=== PATIENT | male | born 1995 | race Caucasian/White ===

== ENCOUNTER 2017-01-18 12:50 | Emergency (ER) | payer MEDICAID | END 2017-01-18 17:02 | disposition home or self-care (01) | LOC: D.ER 12:50 | DX: S91.331A Puncture wound without foreign body, right foot, initial encounter (principal); W45.0XXA Nail entering through skin, initial encounter; Y93.89 Activity, other specified; Y92.019 Unspecified place in single-family (private) house as the place of occurrence of the external cause ==

== ENCOUNTER 2017-10-11 19:28 | Emergency (ER) | payer MEDICAID | END 2017-10-11 21:32 | disposition home or self-care (01) | LOC: D.ER 19:28 | DX: J11.1 Influenza due to unidentified influenza virus with other respiratory manifestations (principal); R11.2 Nausea with vomiting, unspecified ==

== ENCOUNTER 2017-11-24 07:04 | Emergency (ER) | payer MEDICAID ==
[2017-11-24 07:56] LABS: HEMATOCRIT 42.3 % (42.0-54.0); HEMOGLOBIN 14.9 g/dL (13.5-17.5); MCH 30.7 pg (26.0-34.0); MCHC 35.2 g/dL (31.0-37.0); MEAN PLATELET VOLUME 10.2 fL (7.4-10.4); PLATELET COUNT 207 10x3/uL (130-400); RBC 4.86 10x6/uL (4.20-6.10); RDW 12.2 % (11.5-14.5); WBC 21.6 10x3/uL (4.8-10.8)
[2017-11-24 08:08] LABS: ALBUMIN 4.3 g/dL (3.4-5.0); ALKALINE PHOSPHATASE 83 U/L (46-116); ALT (SGPT) 20 U/L (10-68); BILIRUBIN - TOTAL 1.06 mg/dL (0.2-1.3); CALC OSMOLALITY 273 mosm/kg (275-300); CARBON DIOXIDE 27.2 mmol/L (21.0-32.0); CHLORIDE - SERUM 98 mmol/L (98-107); CREATININE - SERUM 1.1 mg/dL (0.6-1.3); GLUCOSE 99 mg/dL (74-106); LIPASE 69 U/L (73-393); POTASSIUM - SERUM 3.5 mmol/L (3.5-5.1); PROTEIN - SERUM 7.7 g/dL (6.4-8.2); SODIUM 136 mmol/L (136-145); UREA NITROGEN 17 mg/dL (7-18); eGFR NON AFRICAN AMERICAN 90 mL/min (90-120)
[2017-11-24 08:16] LABS: APPEARANCE HAZY (CLEAR); BILIRUBIN NEGATIVE (NEGATIVE); COLOR DK YELLOW (YELLOW); GLUCOSE NEGATIVE (NEGATIVE); KETONE NEGATIVE (NEGATIVE); NITRITE NEGATIVE (NEGATIVE); PROTEIN TRACE mg/dL (NEGATIVE); UROBILINOGEN NORMAL (NORMAL)
[2017-11-24 08:19] LABS: EPITHELIAL CELLS 0-5 /hpf (0-5); RED CELLS - URINE 0-5 /hpf (0-5); WHITE CELLS - URINE 0-5 /hpf (0-5)
[2017-11-24 08:20] LABS: AMORPHOUS SEDIMENT <1+ /lpf (NONE SEEN); BACTERIA FEW /hpf (NONE SEEN); GRANULAR CAST OCC /lpf (NONE SEEN); HYALINE CAST 0-5 /lpf (NONE SEEN); MUCUS >1+ /lpf (NONE SEEN); WAXY CAST RARE /lpf (NONE SEEN)
[2017-11-24 08:24] LABS: LYMPHOCYTES 4 % (15-50); MONOCYTES 4 % (2-11); NEUTROPHILS 81 % (40-80)
[2017-11-24 08:25] LABS: PLATELET ESTIMATE NORMAL; VACUOLES OCC
[2017-11-24 08:26] LABS: PLATELET MORPHOLOGY GIANT PLTS PRESENT
== END 2017-11-24 09:51 | disposition home or self-care (01) ==
LOC: D.ER 07:04
PROVIDERS: Family Medicine
DX: M54.5 Low back pain (principal); R10.9 Unspecified abdominal pain; D72.829 Elevated white blood cell count, unspecified

== ENCOUNTER 2017-11-25 19:13 | Emergency (ER) | payer MEDICAID ==
[2017-11-25 19:55] LABS: BASOPHILS 0.2 % (0-2); EOSINOPHILS 0.1 % (0-7); HEMATOCRIT 43.1 % (42.0-54.0); HEMOGLOBIN 15.4 g/dL (13.5-17.5); IMMATURE GRANULOCYTES 0.3 % (0-5); LYMPHOCYTES 8.9 % (15-50); MCH 30.7 pg (26.0-34.0); MCHC 35.7 g/dL (31.0-37.0); MEAN PLATELET VOLUME 10.3 fL (7.4-10.4); MONOCYTES 9.5 % (2-11); PLATELET COUNT 181 10x3/uL (130-400); RBC 5.01 10x6/uL (4.20-6.10); WBC 19.6 10x3/uL (4.8-10.8)
[2017-11-25 20:22] LABS: C-REACTIVE PROTEIN 17.2 mg/dL (0.0-0.9)
[2017-11-25 21:02] LABS: ERYTHROCYTE SEDIMENTATION RATE 5 mm/hr (0-15)
[2017-11-25 21:02] LABS: APPEARANCE HAZY (CLEAR); BILIRUBIN 2+ (NEGATIVE); COLOR AMBER (YELLOW); GLUCOSE NEGATIVE (NEGATIVE); KETONE MODERATE mg/dL (NEGATIVE); NITRITE NEGATIVE (NEGATIVE); PROTEIN 1+ mg/dL (NEGATIVE); SPECIFIC GRAVITY 1.015 (1.005-1.020)
[2017-11-25 21:03] LABS: UDS - AMPHET NEGATIVE QUAL (NEGATIVE); UDS - BARB NEGATIVE QUAL (NEGATIVE); UDS - BENZO NEGATIVE QUAL (NEGATIVE); UDS - COCAINE NEGATIVE QUAL (NEGATIVE); UDS - OPIATE NEGATIVE QUAL (NEGATIVE); UDS - PCP NEGATIVE QUAL (NEGATIVE); UDS - THC NEGATIVE QUAL (NEGATIVE)
[2017-11-25 21:05] LABS: BACTERIA MODERATE /hpf (NONE SEEN); EPITHELIAL CELLS OCC /hpf (0-5); HYALINE CAST RARE /lpf (NONE SEEN); MUCUS >1+ /lpf (NONE SEEN); RED CELLS - URINE 0-5 /hpf (0-5)
== END 2017-11-25 21:34 | disposition home or self-care (01) ==
LOC: D.ER 19:13
PROVIDERS: Emergency Medicine
DX: R55 Syncope and collapse (principal); R82.71 Bacteriuria; F17.200 Nicotine dependence, unspecified, uncomplicated

== ENCOUNTER 2018-06-18 19:18 | Emergency (ER) | payer SELFPAY ==
[~2018-06-18] VITALS: Ht 378.5 cm; Wt 781.8 kg
[2018-06-18 19:34] VITALS: Ht 378.5 cm; Wt 781.8 kg
[2018-06-18 20:14] LABS: BASOPHILS 0.3 % (0-2); HEMATOCRIT 40.9 % (42.0-54.0); HEMOGLOBIN 14.7 g/dL (13.5-17.5); IMMATURE GRANULOCYTES 0.2 % (0-5); LYMPHOCYTES 28.7 % (15-50); MCH 30.6 pg (26.0-34.0); MCHC 35.9 g/dL (31.0-37.0); MEAN PLATELET VOLUME 10.7 fL (7.4-10.4); MONOCYTES 5.5 % (2-11); NEUTROPHILS 64.3 % (40-80); RBC 4.81 10x6/uL (4.20-6.10); RDW 12.1 % (11.5-14.5); WBC 9.9 10x3/uL (4.8-10.8)
[2018-06-18 20:18] LABS: PLATELET COUNT 248 10x3/uL (130-400)
[2018-06-18 20:27] LABS: ALKALINE PHOSPHATASE 77 U/L (46-116); ALT (SGPT) 26 U/L (10-68); AMYLASE - SERUM 64 U/L (25-115); BILIRUBIN - TOTAL 0.42 mg/dL (0.2-1.3); CALC OSMOLALITY 289 mosm/kg (275-300); CALCIUM 8.9 mg/dL (8.5-10.1); CARBON DIOXIDE 31.7 mmol/L (21.0-32.0); CHLORIDE - SERUM 108 mmol/L (98-107); GLUCOSE 96 mg/dL (74-106); LIPASE 104 U/L (73-393); POTASSIUM - SERUM 3.8 mmol/L (3.5-5.1); PROTEIN - SERUM 7.1 g/dL (6.4-8.2); SODIUM 146 mmol/L (136-145); UREA NITROGEN 11 mg/dL (7-18); eGFR NON AFRICAN AMERICAN > 90 mL/min (90-120)
[2018-06-18 21:43] LABS: APPEARANCE HAZY (CLEAR); COLOR YELLOW (YELLOW)
[2018-06-18 21:44] LABS: BILIRUBIN NEGATIVE (NEGATIVE); GLUCOSE NEGATIVE (NEGATIVE); KETONE NEGATIVE (NEGATIVE); NITRITE NEGATIVE (NEGATIVE); PROTEIN NEGATIVE (NEGATIVE); SPECIFIC GRAVITY 1.015 (1.005-1.020); UROBILINOGEN NORMAL (NORMAL)
[2018-06-18] MEDS ORDERED: ZOFRAN8 MG PO (22:52)
[2018-06-18] MEDS ORDERED: TORADOL10 MG PO (22:52)
[2018-06-18 23:12] VITALS: BP 110/50
== END 2018-06-18 23:14 | disposition home or self-care (01) ==
LOC: D.ER 19:18
PROVIDERS: Family Medicine
DX: R11.2 Nausea with vomiting, unspecified (principal); R10.9 Unspecified abdominal pain

== ENCOUNTER 2018-11-19 19:36 | Emergency (ER) | payer SELFPAY ==
[~2018-11-19] VITALS: Ht 172.7 cm; Wt 80.5 kg
[~2018-11-19 19:36] MED LIST: TORADOL10 MG PO; ZOFRAN8 MG PO
[2018-11-19 20:02] VITALS: Ht 172.7 cm; Wt 80.5 kg
[2018-11-19] MEDS ORDERED: VIBRAMYCIN 100100 MG PO (21:35)
[2018-11-19] MEDS ORDERED: PHENERGAN DM SYR5 ML PO (21:35)
[2018-11-19 22:25] VITALS: BP 119/62
== END 2018-11-19 22:25 | disposition home or self-care (01) ==
LOC: D.ER 19:36
DX: J06.9 Acute upper respiratory infection, unspecified (principal); R05 Cough; R07.9 Chest pain, unspecified

== ENCOUNTER 2019-01-05 23:56 | Emergency (ER) | payer SELFPAY ==
[~2019-01-05] VITALS: Ht 172.7 cm; Wt 77.1 kg
[~2019-01-05 23:56] MED LIST changes: +PHENERGAN DM SYR5 ML PO; +VIBRAMYCIN 100100 MG PO
[2019-01-06 00:01] VITALS: Ht 172.7 cm; Wt 77.1 kg
[2019-01-06] MEDS ORDERED: VOLTAREN75 MG PO (00:27)
[2019-01-06] MEDS ORDERED: PHENERGAN DM SYR5 ML PO (00:27)
[2019-01-06 01:07] VITALS: BP 124/62
== END 2019-01-06 01:05 | disposition home or self-care (01) ==
LOC: D.ER 23:56
DX: J40 Bronchitis, not specified as acute or chronic (principal); M79.18 Myalgia, other site

== ENCOUNTER 2019-01-16 17:09 | Emergency (ER) | payer BC ==
[~2019-01-16] VITALS: Ht 172.7 cm; Wt 70.5 kg
[~2019-01-16 17:09] MED LIST changes: +VOLTAREN75 MG PO
[2019-01-16 18:05] VITALS: Ht 172.7 cm; Wt 70.5 kg
[2019-01-16 18:56] LABS: BASOPHILS 0.5 % (0-2); EOSINOPHILS 1.6 % (0-7); HEMATOCRIT 44.4 % (42.0-54.0); HEMOGLOBIN 15.9 g/dL (13.5-17.5); IMMATURE GRANULOCYTES 0.2 % (0-5); LYMPHOCYTES 28.6 % (15-50); MCH 30.9 pg (26.0-34.0); MCHC 35.8 g/dL (31.0-37.0); MCV 86.2 fL (80.0-100.0); MEAN PLATELET VOLUME 9.9 fL (7.4-10.4); MONOCYTES 8.2 % (2-11); NEUTROPHILS 60.9 % (40-80); PLATELET COUNT 238 10x3/uL (130-400); RBC 5.15 10x6/uL (4.20-6.10); RDW 12.2 % (11.5-14.5); WBC 9.4 10x3/uL (4.8-10.8)
[2019-01-16 19:18] LABS: APPEARANCE CLEAR (CLEAR); BILIRUBIN NEGATIVE (NEGATIVE); COLOR YELLOW (YELLOW); GLUCOSE NEGATIVE (NEGATIVE); KETONE NEGATIVE (NEGATIVE); NITRITE NEGATIVE (NEGATIVE); PROTEIN NEGATIVE (NEGATIVE); UROBILINOGEN NORMAL (NORMAL)
[2019-01-16 19:43] LABS: ALBUMIN 3.9 g/dL (3.4-5.0); ALKALINE PHOSPHATASE 93 U/L (46-116); ALT (SGPT) 23 U/L (10-68); BILIRUBIN - TOTAL 0.34 mg/dL (0.2-1.3); CALC OSMOLALITY 282 mosm/kg (275-300); CARBON DIOXIDE 29.8 mmol/L (21.0-32.0); CHLORIDE - SERUM 105 mmol/L (98-107); CREATININE - SERUM 0.9 mg/dL (0.6-1.3); GLUCOSE 112 mg/dL (74-106); POTASSIUM - SERUM 3.9 mmol/L (3.5-5.1); PROTEIN - SERUM 7.5 g/dL (6.4-8.2); SODIUM 141 mmol/L (136-145); UREA NITROGEN 16 mg/dL (7-18); eGFR NON AFRICAN AMERICAN > 90 mL/min (90-120)
[2019-01-16 22:08] VITALS: BP 118/71
== END 2019-01-16 22:08 | disposition home or self-care (01) ==
LOC: D.ER 17:09
PROVIDERS: Family Medicine
DX: M79.18 Myalgia, other site (principal)

== ENCOUNTER 2019-03-06 16:06 | Emergency (ER) | payer BC ==
[~2019-03-06] VITALS: Ht 172.7 cm; Wt 78.6 kg
[2019-03-06 16:09] VITALS: Ht 172.7 cm; Wt 78.6 kg
[2019-03-06] MEDS ORDERED: PAXIL20 MG PO (16:11)
[2019-03-06] MEDS ORDERED: PREDNISONE20 MG PO (16:41)
[2019-03-06] MEDS ORDERED: BACTRIM 400-801 TAB PO (16:41)
[2019-03-06 17:39] VITALS: BP 138/76
== END 2019-03-06 17:39 | disposition home or self-care (01) ==
LOC: D.ER 16:06
DX: S00.86XA Insect bite (nonvenomous) of other part of head, initial encounter (principal); S40.862A Insect bite (nonvenomous) of left upper arm, initial encounter; W57.XXXA Bitten or stung by nonvenomous insect and other nonvenomous arthropods, initial encounter; Y93.89 Activity, other specified; Y92.89 Other specified places as the place of occurrence of the external cause; R21 Rash and other nonspecific skin eruption

== ENCOUNTER 2019-07-02 02:10 | Emergency (ER) | payer MEDICAID ==
[~2019-07-02] VITALS: Ht 172.7 cm; Wt 75.0 kg
[~2019-07-02 02:10] MED LIST changes: +BACTRIM 400-801 TAB PO; +PAXIL20 MG PO; +PREDNISONE20 MG PO
[2019-07-02 02:15] VITALS: Ht 172.7 cm; Wt 75.0 kg
[2019-07-02 02:59] LABS: BASOPHILS 0.6 % (0-2); EOSINOPHILS 2.9 % (0-7); HEMOGLOBIN 14.2 g/dL (13.5-17.5); LYMPHOCYTES 32.6 % (15-50); MCH 30.7 pg (26.0-34.0); MCHC 34.6 g/dL (31.0-37.0); MCV 88.6 fL (80.0-100.0); MEAN PLATELET VOLUME 10.3 fL (7.4-10.4); MONOCYTES 7.9 % (2-11); PLATELET COUNT 267 10x3/uL (130-400); RBC 4.63 10x6/uL (4.20-6.10); RDW 12.7 % (11.5-14.5); WBC 7.2 10x3/uL (4.8-10.8)
[2019-07-02 03:06] LABS: CALC OSMOLALITY 284 mosm/kg (275-300); CALCIUM 8.5 mg/dL (8.5-10.1); CARBON DIOXIDE 32.5 mmol/L (21.0-32.0); CHLORIDE - SERUM 106 mmol/L (98-107); CREATININE - SERUM 0.9 mg/dL (0.6-1.3); GLUCOSE 92 mg/dL (74-106); POTASSIUM - SERUM 3.7 mmol/L (3.5-5.1); SODIUM 143 mmol/L (136-145); UREA NITROGEN 13 mg/dL (7-18); eGFR NON AFRICAN AMERICAN > 90 mL/min (90-120)
[2019-07-02 03:15] LABS: ALBUMIN 3.6 g/dL (3.4-5.0); ALKALINE PHOSPHATASE 101 U/L (46-116); ALT (SGPT) 39 U/L (10-68); AMYLASE - SERUM 55 U/L (25-115); BILIRUBIN - TOTAL 0.32 mg/dL (0.2-1.3); LIPASE 141 U/L (73-393); PROTEIN - SERUM 6.8 g/dL (6.4-8.2); TROPONIN-I < 0.017 ng/mL (0.000-0.060)
[2019-07-02 03:30] LABS: APPEARANCE CLEAR (CLEAR); BILIRUBIN NEGATIVE (NEGATIVE); COLOR YELLOW (YELLOW); GLUCOSE NEGATIVE (NEGATIVE); KETONE NEGATIVE (NEGATIVE); NITRITE NEGATIVE (NEGATIVE); PROTEIN NEGATIVE (NEGATIVE); SPECIFIC GRAVITY 1.015 (1.005-1.020); UROBILINOGEN NORMAL (NORMAL)
[2019-07-02] MEDS ORDERED: ZOFRAN ODT4 MG/UDTAB PO (03:54)
[2019-07-02 04:16] VITALS: BP 118/78
== END 2019-07-02 04:16 | disposition home or self-care (01) ==
LOC: D.ER 02:10
PROVIDERS: Family Medicine
DX: J06.9 Acute upper respiratory infection, unspecified (principal); R11.2 Nausea with vomiting, unspecified

== ENCOUNTER 2019-07-07 19:02 | Emergency (ER) | payer MEDICAID ==
[~2019-07-07] VITALS: Ht 172.7 cm; Wt 72.7 kg
[~2019-07-07 19:02] MED LIST changes: +ZOFRAN ODT4 MG/UDTAB PO
[2019-07-07 19:21] VITALS: Ht 172.7 cm; Wt 72.7 kg
[2019-07-07] MEDS ORDERED: BACLOFEN20 M1 PO (20:51)
[2019-07-07] MEDS ORDERED: NAPROSYN500 MG PO (20:51)
[2019-07-07 21:53] VITALS: BP 132/89
== END 2019-07-07 21:54 | disposition home or self-care (01) ==
LOC: D.ER 19:02
DX: S49.92XA Unspecified injury of left shoulder and upper arm, initial encounter (principal); X50.0XXA Overexertion from strenuous movement or load, initial encounter; M25.512 Pain in left shoulder; F17.210 Nicotine dependence, cigarettes, uncomplicated

== ENCOUNTER 2019-07-27 18:00 | Emergency (ER) | payer MEDICAID ==
[~2019-07-27] VITALS: Ht 172.7 cm; Wt 79.5 kg
[~2019-07-27 18:00] MED LIST changes: +BACLOFEN20 M1 PO; +NAPROSYN500 MG PO
[2019-07-27 18:11] VITALS: Ht 172.7 cm; Wt 79.5 kg
[2019-07-27 19:24] VITALS: BP 130/72
== END 2019-07-27 19:24 | disposition home or self-care (01) ==
LOC: D.ER 18:00
DX: M25.512 Pain in left shoulder (principal)

== ENCOUNTER 2020-06-19 21:23 | Emergency (ER) | payer OTHER ==
[~2020-06-19] VITALS: Ht 172.7 cm; Wt 81.8 kg
[2020-06-19 21:27] VITALS: Ht 172.7 cm; Wt 81.8 kg
[2020-06-19 22:00] VITALS: BP 145/77
== END 2020-06-19 22:00 | disposition home or self-care (01) ==
LOC: D.ER 21:23
DX: F07.81 Postconcussional syndrome (principal)

== ENCOUNTER 2020-12-05 14:01 | Emergency (ER) | payer OTHER ==
[~2020-12-05] VITALS: Ht 172.7 cm; Wt 79.5 kg
[2020-12-05 14:11] VITALS: Ht 172.7 cm; Wt 79.5 kg
[2020-12-05 14:30] LABS: BILIRUBIN NEGATIVE (NEGATIVE); KETONE NEGATIVE (NEGATIVE); NITRITE NEGATIVE (NEGATIVE); UROBILINOGEN NORMAL mg/dL (< 2)
[2020-12-05 14:36] LABS: BASOPHILS 0.4 % (0-2); EOSINOPHILS 1.7 % (0-7); HEMATOCRIT 44.1 % (42.0-54.0); HEMOGLOBIN 15.3 g/dL (13.5-17.5); IMMATURE GRANULOCYTES 0.3 % (0-5); LYMPHOCYTE ABS# 2.11 10x3/uL (1.32-3.57); LYMPHOCYTES 19.6 % (15-50); MCH 29.8 pg (26.0-34.0); MCHC 34.7 g/dL (31.0-37.0); MCV 85.8 fL (80.0-100.0); MEAN PLATELET VOLUME 10.3 fL (7.4-10.4); MONOCYTES 5.2 % (2-11); NEUTROPHIL ABS# 7.85 10x3/uL (1.78-5.38); NEUTROPHILS 72.8 % (40-80); PLATELET COUNT 246 10x3/uL (130-400); RBC 5.14 10x6/uL (4.20-6.10); RDW 12.4 % (11.5-14.5); WBC 10.8 10x3/uL (4.8-10.8)
[2020-12-05 14:41] LABS: UDS - AMPHET NEGATIVE QUAL (NEGATIVE); UDS - BARB NEGATIVE QUAL (NEGATIVE); UDS - BENZO NEGATIVE QUAL (NEGATIVE); UDS - COCAINE NEGATIVE QUAL (NEGATIVE); UDS - OPIATE NEGATIVE QUAL (NEGATIVE); UDS - PCP NEGATIVE QUAL (NEGATIVE); UDS - THC NEGATIVE QUAL (NEGATIVE)
[2020-12-05 14:44] LABS: CALC OSMOLALITY 278 mosm/kg (275-300); CALCIUM 8.6 mg/dL (8.5-10.1); CARBON DIOXIDE 29.2 mmol/L (21.0-32.0); CHLORIDE - SERUM 103 mmol/L (98-107); GLUCOSE 94 mg/dL (74-106); POTASSIUM - SERUM 4.2 mmol/L (3.5-5.1); SODIUM 139 mmol/L (136-145); UREA NITROGEN 14 mg/dL (7-18); eGFR NON AFRICAN AMERICAN > 90 mL/min (90-120)
[2020-12-05 14:51] LABS: ALBUMIN 3.7 g/dL (3.4-5.0); ALKALINE PHOSPHATASE 106 U/L (30-120); ALT (SGPT) 46 U/L (10-68); MAGNESIUM - SERUM 2.2 mg/dL (1.8-2.4); PROTEIN - SERUM 7.1 g/dL (6.4-8.2)
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
[2020-12-05 15:33] LABS: SARS-CoV-2 ANTIGEN NEGATIVE- SARS-COV-2 (NEGATIVE)
[2020-12-05 17:20] VITALS: BP 126/72
== END 2020-12-05 19:12 ==
LOC: D.ER 14:01
PROVIDERS: Family Medicine
DX: R45.851 Suicidal ideations (principal); F32.9 Major depressive disorder, single episode, unspecified